=== PATIENT | female | born 1990 | race Caucasian/White ===

== ENCOUNTER 2019-10-21 07:29 | Inpatient (IN) | payer SELFPAY ==
[2019-10-21] MEDS ORDERED: Lidocaine 1% 50 ML MDV INJECT PRN (11:49)
[2019-10-21] MEDS ORDERED: Sodium Chloride 0.9% 2.5 ML Syringe FLUSH PRN (11:49)
[2019-10-21] MEDS ORDERED: Sodium Chloride 0.9% 10 ML SDV IV PRN (11:49)
[2019-10-21] MEDS ORDERED: Nalbuphine 10 MG/1 ML Vial IVPUSH PRN (11:49)
[2019-10-21] MEDS ORDERED: Sodium Chloride 0.9% 10 ML Syringe FLUSH PRN (11:49)
[2019-10-21] MEDS ORDERED: Carboprost Tromethamine 250 MCG/1 ML Amp IM PRN (11:49)
[2019-10-21] MEDS ORDERED: Ampicillin 2 GM in Sodium Chloride 0.9% 100 ML IV ONE (11:49)
[2019-10-21] MEDS ORDERED: Tranexamic Acid 1,000 MG in Sodium Chloride 0.9% 100 ML IV PRN (11:49)
[2019-10-21] MEDS ORDERED: Methylergonovine 0.2 MG/1 ML Amp IM PRN (11:49)
[2019-10-21] MEDS ORDERED: Butorphanol 1 MG/ML SDV IVPUSH PRN (11:49)
[2019-10-21] MEDS ORDERED: Water For Irrigation,Sterile 1,000 ML Container IRR PRN (11:49)
[2019-10-21] MEDS ORDERED: Misoprostol 200 MCG Tab PO PRN (11:49)
[2019-10-21] MEDS ORDERED: Oxytocin/0.9 % Sodium Chloride 30 UNIT/500 ML BAG IV SCH ×2 (12:00→16:00)
[2019-10-21] MEDS: Lactated Ringers 1,000 ML IV SCH ×3 (12:30→20:10)
[2019-10-21] MEDS: Ampicillin 1 GM in Sodium Chloride 0.9% 50 ML IV SCH ×3 (16:04→20:29)
[2019-10-21] MEDS ORDERED: Ropivacaine HCl/PF 100 ML ONE (18:25)
[2019-10-21] MEDS ORDERED: fentaNYL 100 MCG/2 ML SDV ONE (18:25)
[2019-10-21] MEDS ORDERED: Ropivacaine 0.2% PF 2 MG/ML 20 ML SDV ONE (18:25)
--- NOTE | 2019-10-21 19:01 | PCM.PREANE ---
Preanesthetic Assessment - Procedure Proposed Procedure: PHILIPPE - Anesthesia/Transfusion/Family Hx Anesthesia History: No Prior Anesthesia Family History of Anesthesia Reaction: No Transfusion History: No Prior Transfusion(s) Intubation History: Unknown - Review of Systems General: No Symptoms Pulmonary: No Symptoms Cardiovascular: No Symptoms Gastrointestinal: No Symptoms Neurological: No Symptoms Other: Reports: Anxiety - Physical Assessment NPO Status Date: 10/21/19 NPO Status Time: 18:00 (CLEAR LIQUIDS) Height: 1.63 m Weight: 78.018 kg ASA Class: 2 Mental Status: Alert & Oriented x3 Airway Class: Mallampati = 1 Dentition: Reports: Normal Dentition Thyro-Mental Finger Breadths: 3 Mouth Opening Finger Breadths: 3 ROM/Head Extension: Full Lungs: Clear to Auscultation Cardiovascular: Regular Rate - Lab Values: Laboratory Last Values WBC 13.19 K/uL (4.0-11.0) H 10/21/19 12:17 RBC 4.18 M/uL (4.30-5.90) L 10/21/19 12:17 Hgb 12.2 g/dL (12.0-16.0) 10/21/19 12:17 Hct 36.3 % (36.0-46.0) 10/21/19 12:17 MCV 86.8 fL (80.0-98.0) 10/21/19 12:17 MCH 29.2 pg (27.0-32.0) 10/21/19 12:17 MCHC 33.6 g/dL (31.0-37.0) 10/21/19 12:17 RDW Std Deviation 40.6 fl (28.0-62.0) 10/21/19 12:17 RDW Coeff of Evangelist 13 % (11.0-15.0) 10/21/19 12:17 Plt Count 297 K/uL (150-400) 10/21/19 12:17 MPV 10.50 fL (7.40-12.00) 10/21/19 12:17 Nucleated RBC % 0.0 /100WBC 10/21/19 12:17 Nucleated RBCs # 0 K/uL 10/21/19 12:17 Blood Type A POSITIVE 10/21/19 12:17 Antibody Screen NEGATIVE 10/21/19 12:17 - Allergies Allergies/Adverse Reactions: Allergies Allergy/AdvReac Type Severity Reaction Status Date / Time No Known Allergies Allergy Verified 10/21/19 11:34 - Blood Blood Available: No Product(s) Available: None - Anesthesia Plan Pre-Op Medication Ordered: None - Acknowledgements Anesthesia Type Planned: Epidural Pt an Appropriate Candidate for the Planned Anesthesia: Yes Alternatives and Risks of Anesthesia Discussed w Pt/Guardian: Yes Pt/Guardian Understands and Agrees with Anesthesia Plan: Yes Additional Comments: 4 cm on pitocin. Pain 9/10. Discussed. ? answered. Permit signed. Acceptable patient for epidural. PreAnesthesia Questionnaire HEENT History: Reports: None Cardiovascular History: Reports: None Respiratory History: Reports: None Gastrointestinal History: Reports: None Genitourinary History: Reports: None BRAZER RESISTANCE History: Reports: None, Musculoskeletal History: Reports: None Neurological History: Reports: None Psychiatric History: Reports: None Endocrine/Metabolic History: Reports: None Hematologic History: Reports: None Dermatologic History: Reports: None - Infectious Disease History Infectious Disease History: Reports: None - Past Surgical History HEENT Surgical History: Reports: None GI Surgical History: Reports: None Musculoskeletal Surgical History: Reports: None - SUBSTANCE USE Smoking Status *Q: Never Smoker Second Hand Smoke Exposure: No Recreational Drug Use History: No - CURRENT (IN HOUSE) MEDS Current Meds: Current Medications Butorphanol Tartrate (Stadol) 1 mg IVPUSH Q1H PRN PRN Reason: Pain Carboprost Tromethamine (Hemabate Ds) 250 mcg IM ASDIRECTED PRN PRN Reason: Post Hemorrhage Lactated Ringer's (Ringers, Lactated) 1,000 mls @ 150 mls/hr IV ASDIRECTED [facility] Last Admin: 10/21/19 18:52 Dose: 150 mls/hr Documented by: Oxytocin/Sodium Chloride (Oxytocin 30 Unit/500 Ml-Ns) 30 unit in 500 mls @ 500 mls/hr IV TITRATE [facility] Tranexamic Acid 1,000 mg/ (Sodium Chloride) 110 mls @ 660 mls/hr IV ONETIME PRN PRN Reason: Bleeding Ampicillin Sodium 1 gm/ Sodium (Chloride) 50 mls @ 100 mls/hr IV Q4H [facility] Last Admin: 10/21/19 16:04 Dose: 100 mls/hr Documented by: Oxytocin/Sodium Chloride (Oxytocin 30 Unit/500 Ml-Ns) 30 unit in 500 mls @ 2 mls/hr IV TITRATE [facility]; Protocol Last Infusion: 10/21/19 16:40 Dose: 4 munits/min, 4 mls/hr Documented by: Lidocaine HCl (Xylocaine 1%) 50 ml INJECT ONETIME PRN PRN Reason: Laceration repair Methylergonovine Maleate (Methergine) 0.2 mg IM ASDIRECTED PRN PRN Reason: Post Hemorrhage Misoprostol (Cytotec) 200 mcg PO ONETIME PRN PRN Reason: Post Hemorrhage Nalbuphine HCl (Nubain) 10 mg IVPUSH Q1H PRN PRN Reason: Pain (severe 7-10) Sodium Chloride (Saline Flush) 10 ml FLUSH ASDIRECTED PRN PRN Reason: Keep Vein Open Sodium Chloride (Saline Flush) 2.5 ml FLUSH ASDIRECTED PRN PRN Reason: Keep Vein Open Sodium Chloride (Normal Saline) 10 ml IV ASDIRECTED PRN PRN Reason: IV Use Sterile Water (Sterile Water For Irrigation) 1,000 ml IRR ASDIRECTED PRN PRN Reason: delivery Discontinued Medications Fentanyl (Sublimaze) Confirm Administered Dose 100 mcg .ROUTE .STK-MED ONE Stop: 10/21/19 18:26 Ampicillin Sodium 2 gm/ Sodium (Chloride) 100 mls @ 200 mls/hr IV ONETIME ONE Stop: 10/21/19 12:18 Last Admin: 10/21/19 12:39 Dose: 200 mls/hr Documented by: Ropivacaine (Naropin 0.2%) Confirm Administered Dose 100 mls @ as directed .ROUTE .STK-MED ONE Stop: 10/21/19 18:26 Ropivacaine (Naropin 0.2%) Confirm Administered Dose 20 ml .ROUTE .STK-MED ONE Stop: 10/21/19 18:26
--- NOTE | 2019-10-21 19:04 | PCM.SN.2 ---
- Free Text/Narrative Note: Epidural without issues via KACEY technique. Pain 9/10 prior, 3/10 post bolus. VSS No issues noted post.
--- NOTE | 2019-10-22 01:50 | PCM.DEL ---
<Michael Hill - Last Filed: 10/22/19 01:59> L & D Note - General Info Date of Service: 10/22/19 - Delivery Note Labor: Spontaneous, Augmented by ARM, Augmented by Oxytocin Cervical Ripening Method: Misoprostil Delivery Outcome: Livebirth Infant Delivery Method: Spontaneous Vaginal Delivery-Single Delivery Mode: Spontaneous Presentation: Left Occiput Anterior (MELINDA) Nuchal Cord: None Anesthesia Type: Epidural Amniotic Fluid Description: Clear Episiotomy Type: None Laceration: 1st Degree Suture type: Vicryl Suture size: 2-0 Placenta: Intact, Spontaneous Cord: 3 Vessels Estimated Blood Loss: 300 Resuscitation Needed: No : Suctioned, Bulb Syringe, Stimulated, Warmed Score 1 min: 8 Score 5 min: 9 Delivery Comments (Free Text/Narrative):: Spontaneous delivery of liveborn female , weight ####g, apgars 8,9. First degree laceration repaired with 2-0 monocryl. - Patient Data Weight - Most Recent: 78.018 kg Lab Results Last 24 Hours: Laboratory Results - last 24 hr 10/21/19 10/21/19 10/21/19 Range/Units 12:17 12:17 20:50 WBC 13.19 H (4.0-11.0) K/uL RBC 4.18 L (4.30-5.90) M/uL Hgb 12.2 (12.0-16.0) g/dL Hct 36.3 (36.0-46.0) % MCV 86.8 (80.0-98.0) fL MCH 29.2 (27.0-32.0) pg MCHC 33.6 (31.0-37.0) g/dL RDW Std Deviation 40.6 (28.0-62.0) fl RDW Coeff of Evangelist 13 (11.0-15.0) % Plt Count 297 (150-400) K/uL MPV 10.50 (7.40-12.00) fL Nucleated RBC % 0.0 /100WBC Nucleated RBCs # 0 K/uL SARS-CoV-2 RNA (RT-PCR) NEGATIVE (NEGATIVE) Blood Type A POSITIVE Antibody Screen NEGATIVE Med Orders - Current: Current Medications Butorphanol Tartrate (Stadol) 1 mg IVPUSH Q1H PRN PRN Reason: Pain Carboprost Tromethamine (Hemabate Ds) 250 mcg IM ASDIRECTED PRN PRN Reason: Post Hemorrhage Lactated Ringer's (Ringers, Lactated) 1,000 mls @ 150 mls/hr IV ASDIRECTED [facility] Last Admin: 10/21/19 20:10 Dose: 150 mls/hr Documented by: Oxytocin/Sodium Chloride (Oxytocin 30 Unit/500 Ml-Ns) 30 unit in 500 mls @ 500 mls/hr IV TITRATE [facility] Tranexamic Acid 1,000 mg/ (Sodium Chloride) 110 mls @ 660 mls/hr IV ONETIME PRN PRN Reason: Bleeding Ampicillin Sodium 1 gm/ Sodium (Chloride) 50 mls @ 100 mls/hr IV Q4H [facility] Last Admin: 10/21/19 20:29 Dose: 100 mls/hr Documented by: Oxytocin/Sodium Chloride (Oxytocin 30 Unit/500 Ml-Ns) 30 unit in 500 mls @ 2 mls/hr IV TITRATE [facility]; Protocol Last Infusion: 10/22/19 00:00 Dose: 14 munits/min, 14 mls/hr Documented by: Lidocaine HCl (Xylocaine 1%) 50 ml INJECT ONETIME PRN PRN Reason: Laceration repair Methylergonovine Maleate (Methergine) 0.2 mg IM ASDIRECTED PRN PRN Reason: Post Hemorrhage Misoprostol (Cytotec) 200 mcg PO ONETIME PRN PRN Reason: Post Hemorrhage Nalbuphine HCl (Nubain) 10 mg IVPUSH Q1H PRN PRN Reason: Pain (severe 7-10) Sodium Chloride (Saline Flush) 10 ml FLUSH ASDIRECTED PRN PRN Reason: Keep Vein Open Sodium Chloride (Saline Flush) 2.5 ml FLUSH ASDIRECTED PRN PRN Reason: Keep Vein Open Sodium Chloride (Normal Saline) 10 ml IV ASDIRECTED PRN PRN Reason: IV Use Sterile Water (Sterile Water For Irrigation) 1,000 ml IRR ASDIRECTED PRN PRN Reason: delivery Discontinued Medications Fentanyl (Sublimaze) Confirm Administered Dose 100 mcg .ROUTE .STK-MED ONE Stop: 10/21/19 18:26 Ampicillin Sodium 2 gm/ Sodium (Chloride) 100 mls @ 200 mls/hr IV ONETIME ONE Stop: 10/21/19 12:18 Last Admin: 10/21/19 12:39 Dose: 200 mls/hr Documented by: Ropivacaine (Naropin 0.2%) Confirm Administered Dose 100 mls @ as directed .ROUTE .STK-MED ONE Stop: 10/21/19 18:26 Ropivacaine (Naropin 0.2%) Confirm Administered Dose 20 ml .ROUTE .STK-MED ONE Stop: 10/21/19 18:26 - Problem List & Annotations (1) Vaginal delivery SNOMED Code(s): 012265634 Code(s): O80 - ENCOUNTER FOR FULL-TERM UNCOMPLICATED DELIVERY Status: Acute Current Visit: Yes (2) Vaginal laceration SNOMED Code(s): 217451710 Code(s): S31.41XA - LACERATION W/O FOREIGN BODY OF VAGINA AND VULVA, INIT ENCNTR Status: Acute Current Visit: Yes - Problem List Review Problem List Initiated/Reviewed/Updated: Yes - Assessment Assessment:: 29yo s/p , uncomplicated. - Plan Plan:: Routine care. <Eri Babb - Last Filed: 10/22/19 02:01> L & D Note - Delivery Note Suture type: Other (monocryl ) Delivery Comments (Free Text/Narrative):: Wt 3400g , Time of 1.21am - General Info Date of Service: 10/22/19 - Patient Data Lab Results Last 24 Hours: Laboratory Results - last 24 hr 10/21/19 10/21/19 10/21/19 Range/Units 12:17 12:17 20:50 WBC 13.19 H (4.0-11.0) K/uL RBC 4.18 L (4.30-5.90) M/uL Hgb 12.2 (12.0-16.0) g/dL Hct 36.3 (36.0-46.0) % MCV 86.8 (80.0-98.0) fL MCH 29.2 (27.0-32.0) pg MCHC 33.6 (31.0-37.0) g/dL RDW Std Deviation 40.6 (28.0-62.0) fl RDW Coeff of Evangelist 13 (11.0-15.0) % Plt Count 297 (150-400) K/uL MPV 10.50 (7.40-12.00) fL Nucleated RBC % 0.0 /100WBC Nucleated RBCs # 0 K/uL SARS-CoV-2 RNA (RT-PCR) NEGATIVE (NEGATIVE) Blood Type A POSITIVE Antibody Screen NEGATIVE Med Orders - Current: Current Medications Butorphanol Tartrate (Stadol) 1 mg IVPUSH Q1H PRN PRN Reason: Pain Carboprost Tromethamine (Hemabate Ds) 250 mcg IM ASDIRECTED PRN PRN Reason: Post Hemorrhage Lactated Ringer's (Ringers, Lactated) 1,000 mls @ 150 mls/hr IV ASDIRECTED [facility] Last Admin: 10/21/19 20:10 Dose: 150 mls/hr Documented by: Oxytocin/Sodium Chloride (Oxytocin 30 Unit/500 Ml-Ns) 30 unit in 500 mls @ 500 mls/hr IV TITRATE [facility] Tranexamic Acid 1,000 mg/ (Sodium Chloride) 110 mls @ 660 mls/hr IV ONETIME PRN PRN Reason: Bleeding Ampicillin Sodium 1 gm/ Sodium (Chloride) 50 mls @ 100 mls/hr IV Q4H [facility] Last Admin: 10/21/19 20:29 Dose: 100 mls/hr Documented by: Oxytocin/Sodium Chloride (Oxytocin 30 Unit/500 Ml-Ns) 30 unit in 500 mls @ 2 mls/hr IV TITRATE [facility]; Protocol Last Infusion: 10/22/19 00:00 Dose: 14 munits/min, 14 mls/hr Documented by: Lidocaine HCl (Xylocaine 1%) 50 ml INJECT ONETIME PRN PRN Reason: Laceration repair Methylergonovine Maleate (Methergine) 0.2 mg IM ASDIRECTED PRN PRN Reason: Post Hemorrhage Misoprostol (Cytotec) 200 mcg PO ONETIME PRN PRN Reason: Post Hemorrhage Nalbuphine HCl (Nubain) 10 mg IVPUSH Q1H PRN PRN Reason: Pain (severe 7-10) Sodium Chloride (Saline Flush) 10 ml FLUSH ASDIRECTED PRN PRN Reason: Keep Vein Open Sodium Chloride (Saline Flush) 2.5 ml FLUSH ASDIRECTED PRN PRN Reason: Keep Vein Open Sodium Chloride (Normal Saline) 10 ml IV ASDIRECTED PRN PRN Reason: IV Use Sterile Water (Sterile Water For Irrigation) 1,000 ml IRR ASDIRECTED PRN PRN Reason: delivery Discontinued Medications Fentanyl (Sublimaze) Confirm Administered Dose 100 mcg .ROUTE .STK-MED ONE Stop: 10/21/19 18:26 Ampicillin Sodium 2 gm/ Sodium (Chloride) 100 mls @ 200 mls/hr IV ONETIME ONE Stop: 10/21/19 12:18 Last Admin: 10/21/19 12:39 Dose: 200 mls/hr Documented by: Ropivacaine (Naropin 0.2%) Confirm Administered Dose 100 mls @ as directed .ROUTE .STK-MED ONE Stop: 10/21/19 18:26 Ropivacaine (Naropin 0.2%) Confirm Administered Dose 20 ml .ROUTE .[employer]-MED ONE Stop: 10/21/19 18:26 - Problem List & Annotations (1) Vaginal delivery SNOMED Code(s): 098313440 Code(s): O80 - ENCOUNTER FOR FULL-TERM UNCOMPLICATED DELIVERY Status: Acute Current Visit: Yes - Problem List Review Problem List Initiated/Reviewed/Updated: Yes - My Orders Last 24 Hours: My Active Orders 10/21/19 11:37 Patient Status [ADT] Routine Non Stress Test [RC] PER UNIT ROUTINE Up ad Cintia [RC] ASDIRECTED Vaginal Exam [RC] Click to Edit Vital Signs [RC] PER UNIT ROUTINE Resuscitation Status Routine 10/21/19 11:49 Patient Status [ADT] Routine May Shower [RC] ASDIRECTED Notify Provider [RC] PRN Butorphanol [Stadol] 1 mg IVPUSH Q1H PRN Carboprost Tromethamine [Hemabate DS] 250 mcg IM ASDIRECTED PRN Lidocaine 1% [Xylocaine 1%] 50 ml INJECT ONETIME PRN Methylergonovine [Methergine] 0.2 mg IM ASDIRECTED PRN Nalbuphine [Nubain] 10 mg IVPUSH Q1H PRN Sodium Chloride 0.9% [Normal Saline] 10 ml IV ASDIRECTED PRN Sodium Chloride 0.9% [Saline Flush] 10 ml FLUSH ASDIRECTED PRN Sodium Chloride 0.9% [Saline Flush] 2.5 ml FLUSH ASDIRECTED PRN Tranexamic Acid [Cyklokapron] 1,000 mg Sodium Chloride 0.9% [Normal Saline] 100 ml IV ONETIME Water For Irrigation,Sterile [Sterile Water for Irrigation] 1,000 ml IRR ASDIRECTED PRN miSOPROStoL [Cytotec] 200 mcg PO ONETIME PRN Scalp Electrode [WOMSER] Per Unit Routine Peripheral IV Insertion Adult [OM.PC] Routine 10/21/19 12:00 Ampicillin 1 gm Sodium Chloride 0.9% [Normal Saline] 50 ml IV Q4H Lactated Ringers [Ringers, Lactated] 1,000 ml IV ASDIRECTED Oxytocin/0.9 % Sodium Chloride [Oxytocin 30 Unit/500 ML-NS] 30 unit in 500 ml IV TITRATE 10/21/19 12:17 RPR (SYPHILIS SERO) W/ RFLX [REF] Routine 10/21/19 16:00 Oxytocin/0.9 % Sodium Chloride [Oxytocin 30 Unit/500 ML-NS] 30 unit in 500 ml IV TITRATE
[2019-10-22] MEDS ORDERED: oxyCODONE 5 MG Tab PO PRN (02:07)
[2019-10-22] MEDS ORDERED: Acetaminophen 500 MG Tab PO PRN (02:07)
[2019-10-22] MEDS ORDERED: Ibuprofen 400 MG Tab PO PRN (02:07)
[2019-10-22] MEDS ORDERED: Witch Hazel Medicated Pads 40/Jar TOP PRN (02:07)
[2019-10-22] MEDS ORDERED: Lanolin 100% Cream 7 GM Tube TOP PRN (02:07)
[2019-10-22] MEDS ORDERED: Benzocaine/Menthol 20%-0.5% Spray 78 GM Cannister TOP PRN (02:07)
[2019-10-22] MEDS ORDERED: Docusate Sodium 100 MG Cap PO PRN (02:07)
[2019-10-22] MEDS ORDERED: Bisacodyl 10 MG Supp RECTAL PRN (02:07)
[2019-10-22] MEDS: Ibuprofen 800 MG Tab PO PRN ×3 (09:12→21:50)
[2019-10-22] MEDS: Acetaminophen 500 MG Tab PO PRN ×4 (09:13→21:51)
--- NOTE | 2019-10-22 09:37 | PCM48HPAN ---
Post Anesthesia Note - EVALUATION WITHIN 48HRS OF ANESTHETIC Vital Signs in Normal Range: Yes Patient Participated in Evaluation: Yes Respiratory Function Stable: Yes Airway Patent: Yes Cardiovascular Function Stable: Yes Hydration Status Stable: Yes Pain Control Satisfactory: Yes Nausea and Vomiting Control Satisfactory: Yes Mental Status Recovered: Yes - COMMENTS/OBSERVATIONS Free Text/Narrative:: Did well. No problems post.
--- NOTE | 2019-10-22 10:04 | OR ---
SURGEON: CLAYTON ALLEN DATE OF PROCEDURE: 10/22/2019 PREOPERATIVE DIAGNOSES: A 29-year-old G1, P0 at 40 weeks 0 days, admitted in early labor. GBS positive. POSTOPERATIVE DIAGNOSES: A 29-year-old G1, P0 at 40 weeks 0 days, admitted in early labor. GBS positive. PROCEDURE: 1. Normal spontaneous vaginal delivery. 2. Repair of first-degree vaginal laceration. ESTIMATED BLOOD LOSS: 300. ANAESTHESIA: Epidural IV FLUIDS: Pitocin running. NOTES AND FINDINGS: A live female delivered at 1:21 a.m. scores are 8 and 9, weight is 3400 g. BRIEF HISTORY: She is a 29-year-old G1, P0 at 40 weeks 0 days admitted in early labor. She was about 2 cm. She made change to 4. She was admitted and for a while, the patient had the same exam, so Pitocin was started, after which she was AROM'd. Because she was GBS positive, she received ampicillin for GBS prophylaxis. After the patient was ruptured, clear fluid was noted. She had a normal labor curve and she progressed to being fully dilated. DESCRIPTION OF PROCEDURE: With the patient being fully dilated, she was encouraged to push. With good pushing effort, she delivered the head, subsequently by the anterior and posterior shoulder, the body of the infant was delivered. Infant was placed on the maternal abdomen. Delayed cord clamping was observed. Cord blood gases were obtained. Placenta was delivered via controlled cord traction and the perineum was inspected, noted to have some bilateral labial laceration, very minimal bilateral labial abrasion and first-degree laceration, which was repaired with 4-0 Monocryl. Bimanual uterine massage was done. Bleeding was noted to be minimal. All instrument and pad counts were correct x2. The patient tolerated the procedure well and was left in Labor and Delivery room in stable condition. POLY / CHITRA /[id number] MTDD
[2019-10-23] MEDS: Ibuprofen 800 MG Tab PO PRN (03:50)
[2019-10-23] MEDS: Acetaminophen 500 MG Tab PO PRN ×2 (03:51→10:41)
[2019-10-23 04:42] VITALS: PULSE 73
[2019-10-23] MEDS ORDERED: Measles, Mumps & Rubella Vaccine 0.5 ML SDV SUBCUT ONE (07:00)
--- NOTE | 2019-10-23 07:19 | PCM.PNPP ---
- General Info Date of Service: 10/23/19 Functional Status: Reports: Pain Controlled, Tolerating Diet, Ambulating, Urinating - Review of Systems General: Reports: No Symptoms HEENT: Reports: No Symptoms Pulmonary: Reports: No Symptoms Cardiovascular: Reports: No Symptoms Gastrointestinal: Reports: No Symptoms Genitourinary: Reports: No Symptoms Musculoskeletal: Reports: No Symptoms Skin: Reports: No Symptoms Neurological: Reports: No Symptoms Psychiatric: Reports: No Symptoms - Patient Data Vital Signs - Most Recent: Last Vital Signs Temp 35.7 C L 10/23/19 03:57 Pulse 73 10/23/19 03:57 Resp 16 10/23/19 03:57 BP 110/64 10/23/19 03:57 Pulse Ox 97 10/23/19 03:57 Weight - Most Recent: 78.018 kg Lab Results - Last 24 Hours: Laboratory Results - last 24 hr 10/23/19 Range/Units 06:30 Hgb 10.5 L (12.0-16.0) g/dL Hct 31.9 L (36.0-46.0) % Med Orders - Current: Current Medications Acetaminophen (Tylenol Extra Strength) 500 mg PO Q4H PRN PRN Reason: Pain Acetaminophen (Tylenol Extra Strength) 1,000 mg PO Q4H PRN PRN Reason: Pain Last Admin: 10/23/19 03:51 Dose: 1,000 mg Documented by: Benzocaine/Menthol (Dermoplast Pain Relief 20%-0.5% [place]) 78 gm TOP ASDIRECTED PRN PRN Reason: Perineal Comfort Measure Last Admin: 10/22/19 09:11 Dose: 1 canister Documented by: Bisacodyl (Dulcolax) 10 mg RECTAL ONETIME PRN PRN Reason: Constipation Butorphanol Tartrate (Stadol) 1 mg IVPUSH Q1H PRN PRN Reason: Pain Carboprost Tromethamine (Hemabate Ds) 250 mcg IM ASDIRECTED PRN PRN Reason: Post Hemorrhage Docusate Sodium (Colace) 100 mg PO BID PRN PRN Reason: Constipation Last Admin: 10/22/19 21:50 Dose: 100 mg Documented by: Emollient Ointment (Lansinoh Hpa) 0 gm TOP ASDIRECTED PRN PRN Reason: Sore Nipples Lactated Ringer's (Ringers, Lactated) 1,000 mls @ 150 mls/hr IV ASDIRECTED [facility] Last Admin: 10/21/19 20:10 Dose: 150 mls/hr Documented by: Oxytocin/Sodium Chloride (Oxytocin 30 Unit/500 Ml-Ns) 30 unit in 500 mls @ 500 mls/hr IV TITRATE [facility] Tranexamic Acid 1,000 mg/ (Sodium Chloride) 110 mls @ 660 mls/hr IV ONETIME PRN PRN Reason: Bleeding Ampicillin Sodium 1 gm/ Sodium (Chloride) 50 mls @ 100 mls/hr IV Q4H [facility] Last Admin: 10/21/19 20:29 Dose: 100 mls/hr Documented by: Oxytocin/Sodium Chloride (Oxytocin 30 Unit/500 Ml-Ns) 30 unit in 500 mls @ 2 mls/hr IV TITRATE [facility]; Protocol Last Infusion: 10/22/19 00:00 Dose: 14 munits/min, 14 mls/hr Documented by: Ibuprofen (Motrin) 400 mg PO Q4H PRN PRN Reason: Pain Ibuprofen (Motrin) 800 mg PO Q6H PRN PRN Reason: Pain Last Admin: 10/23/19 03:50 Dose: 800 mg Documented by: Lidocaine HCl (Xylocaine 1%) 50 ml INJECT ONETIME PRN PRN Reason: Laceration repair Methylergonovine Maleate (Methergine) 0.2 mg IM ASDIRECTED PRN PRN Reason: Post Hemorrhage Misoprostol (Cytotec) 200 mcg PO ONETIME PRN PRN Reason: Post Hemorrhage Nalbuphine HCl (Nubain) 10 mg IVPUSH Q1H PRN PRN Reason: Pain (severe 7-10) Oxycodone HCl (Oxycodone) 5 mg PO Q2H PRN PRN Reason: Pain Sodium Chloride (Saline Flush) 10 ml FLUSH ASDIRECTED PRN PRN Reason: Keep Vein Open Sodium Chloride (Saline Flush) 2.5 ml FLUSH ASDIRECTED PRN PRN Reason: Keep Vein Open Sodium Chloride (Normal Saline) 10 ml IV ASDIRECTED PRN PRN Reason: IV Use Sterile Water (Sterile Water For Irrigation) 1,000 ml IRR ASDIRECTED PRN PRN Reason: delivery Witch Marcy (Tucks) 1 pad TOP ASDIRECTED PRN PRN Reason: comfort care Discontinued Medications Fentanyl (Sublimaze) Confirm Administered Dose 100 mcg .ROUTE .STK-MED ONE Stop: 10/21/19 18:26 Ampicillin Sodium 2 gm/ Sodium (Chloride) 100 mls @ 200 mls/hr IV ONETIME ONE Stop: 10/21/19 12:18 Last Admin: 10/21/19 12:39 Dose: 200 mls/hr Documented by: Ropivacaine (Naropin 0.2%) Confirm Administered Dose 100 mls @ as directed .ROUTE .STK-MED ONE Stop: 10/21/19 18:26 Measles/Mumps/Rubella Vaccine Live (M-M-R Ii Vaccine) 0.5 ml SUBCUT .ONCE ONE Stop: 10/23/19 07:01 Ropivacaine (Naropin 0.2%) Confirm Administered Dose 20 ml .ROUTE .STK-MED ONE Stop: 10/21/19 18:26 - Infant Interaction Infant Disposition, : [place] in Room with Family Interaction: Holding Infant Feeding: Breastfed ; Nursed Well Support Person: Mother - Recovery Exam Fundal Tone: Firm Fundal Level: 1 Fingerbreadths Below Umbilicus Fundal Placement: Midline Lochia Amount: Small Lochia Color: Rubra/Red Perineum Description: Other (see below) Other Perinuem Description: skid kaye Episiotomy/Laceration: Approximated Bladder Status: Voiding Urinary Elimination: Voided - Exam General: Alert, Oriented HEENT: Pupils Equal Neck: Supple Lungs: Normal Respiratory Effort GI/Abdominal Exam: Soft, Non-Tender, No Distention, No Mass Extremities: Normal Inspection, Non-Tender, No Pedal Edema Skin: Warm, Dry, Intact Neurological: No New Focal Deficit Psy/Mental Status: Alert, Normal Affect, Normal Mood - Problem List & Annotations (1) Vaginal delivery SNOMED Code(s): 941194239 Code(s): O80 - ENCOUNTER FOR FULL-TERM UNCOMPLICATED DELIVERY Status: Acute Current Visit: Yes - Problem List Review Problem List Initiated/Reviewed/Updated: Yes - Assessment Assessment:: PPD#1 after , stable, minimal lochia, would like to go home today. - Plan Plan:: Discharge instructions reviewed. Dismiss to home today..
[2019-10-23] MEDS: Ampicillin 1 GM in Sodium Chloride 0.9% 50 ML IV SCH ×2 (08:32→08:33)
[2019-10-23 10:31] VITALS: BP 118/72
== END 2019-10-23 12:35 | disposition home or self-care (01) | DRG 807 ==
LOC: MW.OBCHECK 07:29 → MW.OB 07:29 → MW.OBCHECK 11:49 → MW.OB 11:50 → OBSVTOIN 10-22 01:21 → MW.OB 10-22 04:49
PROVIDERS: ADMIT Obstetrics & Gynecology; ATTEND Obstetrics & Gynecology
PROC: 10E0XZZ Delivery of Products of Conception, External Approach (ICD-10-PCS; principal; 2019-10-22)
PROC: 10907ZC Drainage of Amniotic Fluid, Therapeutic from Products of Conception, Via Natural or Artificial Opening (ICD-10-PCS; 2019-10-22)
PROC: 3E0P7VZ Introduction of Hormone into Female Reproductive, Via Natural or Artificial Opening (ICD-10-PCS; 2019-10-22)
PROC: 3E0R3BZ Introduction of Anesthetic Agent into Spinal Canal, Percutaneous Approach (ICD-10-PCS; 2019-10-22)
PROC: 0HQ9XZZ Repair Perineum Skin, External Approach (ICD-10-PCS; 2019-10-22)
PROC: 4A1HXCZ Monitoring of Products of Conception, Cardiac Rate, External Approach (ICD-10-PCS; 2019-10-22)
DX: O48.0 Post-term pregnancy (principal); Z37.0 Single live birth; O99.824 Streptococcus B carrier state complicating childbirth; O70.0 First degree perineal laceration during delivery; Z11.59 Encounter for screening for other viral diseases; Z3A.40 40 weeks gestation of pregnancy
CPT/HCPCS: 01967; 36415; 51702; 59025; 59409; 82803; 85014; 85018; 85027; 86592; 86593; 86850; 86900; 86901; A9270-GY; J0290; J2590; J7050; J7120; U0002

== ENCOUNTER 2024-05-11 01:34 | Inpatient (IN) | payer BC ==
[2024-05-11] MEDS ORDERED: Water For Irrigation,Sterile 1,000 ML Container IRR PRN (01:50)
[2024-05-11] MEDS ORDERED: Sodium Chloride 0.9% 2.5 ML Syringe FLUSH PRN (01:50)
[2024-05-11] MEDS ORDERED: Carboprost Tromethamine 250 MCG/1 mL Vial IM PRN (01:50)
[2024-05-11] MEDS ORDERED: Tranexamic Acid in NACL,ISO-OS 1,000 MG in Premix Bag 1 BAG IV PRN (01:50)
[2024-05-11] MEDS ORDERED: Misoprostol 200 MCG Tab PO PRN (01:50)
[2024-05-11] MEDS ORDERED: Methylergonovine 0.2 MG/1 ML Amp IM PRN (01:50)
[2024-05-11] MEDS ORDERED: Lidocaine 1% 50 ML MDV INJECT PRN (01:50)
[2024-05-11] MEDS ORDERED: Butorphanol 2 MG/ML SDV IVPUSH PRN (01:50)
[2024-05-11] MEDS ORDERED: Sodium Chloride 0.9% 10 ML Syringe FLUSH PRN (01:50)
[2024-05-11] MEDS ORDERED: Sodium Chloride 0.9% 20 ML SDV IV PRN (01:50)
[2024-05-11 02:12] LABS: HEMATOCRIT 31.5 % (37.0-47.0); HEMOGLOBIN 11.6 g/dL (12.0-16.0); MEAN CORPUSCULAR HEMOGLOBIN 30.6 pg (28.0-32.0); MEAN CORPUSCULAR HGB CONC 36.8 g/dL (32.0-36.0); MEAN CORPUSCULAR VOLUME 83.1 fL (83.0-99.0); MEAN PLATELET VOLUME 9.6 fL (9.4-12.3); PLATELET COUNT,PLT 260 K/uL (150-400); RED BLOOD CELL COUNT 3.79 M/uL (4.10-5.30); WHITE BLOOD CELL COUNT,WBC 18.51 K/uL (3.9-11.3)
[2024-05-11] MEDS ORDERED: Phenylephrine HCl In 0.9% NaCl 1 MG/10 ML Syringe ONE (02:13)
[2024-05-11] MEDS ORDERED: Bupivacaine 0.5% 10 ML SDV ONE (02:13)
[2024-05-11] MEDS ORDERED: Ropivacaine HCl/PF 200 ML ONE (02:13)
[2024-05-11] MEDS: Lactated Ringers 1,000 ML IV SCH (02:15)
[2024-05-11] MEDS: Ropivacaine HCl/PF 400 MG in Premix Bag 1 BAG EPIDUR SCH (02:23)
[2024-05-11] MEDS ORDERED: ePHEDrine 50 MG/ML SDV IVPUSH PRN (02:38)
[2024-05-11] MEDS ORDERED: Phenylephrine HCl In 0.9% NaCl 1 MG/10 ML Syringe IVPUSH PRN (02:38)
[2024-05-11] MEDS ORDERED: Bupivacaine 0.5% 10 ML SDV INJECT ONE (02:38)
[2024-05-11] MEDS ORDERED: ePHEDrine 50 MG/ML SDV IM PRN (02:38)
[2024-05-11] MEDS ORDERED: dexmedeTOMIDine HCl 200 MCG/2 ML SDV EPIDUR SCH (02:45)
[2024-05-11] MEDS: Calcium Carbonate 500 MG Tab.Chew PO ONE (02:53)
[2024-05-11] MEDS: Oxytocin/0.9 % Sodium Chloride 30 UNIT/500 ML BAG IV SCH (03:55)
[2024-05-11] MEDS ORDERED: Oxytocin 10 Units/1 ML SDV IM PRN (04:46)
[2024-05-11] MEDS ORDERED: Simethicone 80 MG Tab.Chew PO PRN (04:46)
[2024-05-11] MEDS ORDERED: Lanolin 100% Cream 7 GM Tube TOP PRN (04:46)
[2024-05-11] MEDS ORDERED: Witch Hazel Medicated Pads 40/Jar TOP PRN (04:46)
[2024-05-11 05:48] LABS: PH,UMBILICAL ARTERIAL 7.168 (7.18-7.38); PH,UMBILICAL VENOUS 7.295 (7.25-7.45)
[2024-05-11] MEDS: Ibuprofen 800 MG Tab PO PRN (06:21)
[2024-05-11] MEDS: Acetaminophen 500 MG Tab PO PRN (08:54)
[2024-05-11] MEDS: Docusate Sodium 100 MG Cap PO PRN (08:57)
[2024-05-11] MEDS: Benzocaine/Menthol 20%-0.5% Spray 78 GM Cannister TOP PRN (08:57)
[2024-05-12 06:18] LABS: HEMATOCRIT 29.7 % (37.0-47.0); HEMOGLOBIN 10.6 g/dL (12.0-16.0); MEAN CORPUSCULAR HEMOGLOBIN 30.9 pg (28.0-32.0); MEAN CORPUSCULAR HGB CONC 35.7 g/dL (32.0-36.0); MEAN CORPUSCULAR VOLUME 86.6 fL (83.0-99.0); MEAN PLATELET VOLUME 9.7 fL (9.4-12.3); PLATELET COUNT,PLT 225 K/uL (150-400); RED BLOOD CELL COUNT 3.43 M/uL (4.10-5.30); WHITE BLOOD CELL COUNT,WBC 11.85 K/uL (3.9-11.3)
[2024-05-12 09:29] VITALS: BP 118/71; PULSE 92
== END 2024-05-12 12:28 | disposition home or self-care (01) | DRG 560 ==
LOC: MW.OBCHECK 01:34 → MW.OB 01:35 → MW.OBCHECK 01:50 → OBSVTOIN 03:55 → MW.OB 06:19
PROVIDERS: ADMIT Obstetrics & Gynecology; ATTEND Obstetrics & Gynecology
PROC: 10E0XZZ Delivery of Products of Conception, External Approach (ICD-10-PCS; principal; 2024-05-11)
DX: O48.0 Post-term pregnancy (principal); Z37.0 Single live birth; Z3A.40 40 weeks gestation of pregnancy
CPT/HCPCS: 01967; 36415; 59025; 59409; 82803; 85027; 86592; 86850; 86900; 86901; A9270-GY; J0665; J2590; J2795; J7120